=== PATIENT | female | born 1955 | race Hispanic/Latino ===

== ENCOUNTER 2018-10-16 21:51 | Emergency (ER) | payer MEDICARE ==
[~2018-10-16 21:51] MED LIST: BUPR-47 PO; DEXL60CA3 PO; GLIM4TAB3 PO; LEVO50 PO; LINA145C PO; LISI2.5T2 PO; METF-446 PO; QUET100T70 PO; ROSU40TA20 PO; SITA50TA PO; ZOLP10TA6 PO
[2018-10-16] MEDS ORDERED: ACETAMINOPHEN EXTRA STRENGTH 500 MG TABLET ONE (22:38)
[2018-10-16 22:57] LABS: RAPID GROUP A STREP NEGATIVE (NEGATIVE)
== END 2018-10-16 23:38 | disposition home or self-care (01) ==
LOC: EDH 21:51
DX: J20.9 Acute bronchitis, unspecified (principal); I10 Essential (primary) hypertension; E78.5 Hyperlipidemia, unspecified; E11.9 Type 2 diabetes mellitus without complications; Z90.710 Acquired absence of both cervix and uterus; Z90.49 Acquired absence of other specified parts of digestive tract; Z98.890 Other specified postprocedural states
CPT/HCPCS: 71046; 87804; 87880

== ENCOUNTER 2018-12-17 16:57 | Emergency (ER) | payer MEDICARE | END 2018-12-17 18:43 | disposition home or self-care (01) | LOC: EDH 16:57 | DX: S99.811A Other specified injuries of right ankle, initial encounter (principal); E11.9 Type 2 diabetes mellitus without complications; E78.5 Hyperlipidemia, unspecified; I10 Essential (primary) hypertension; W18.39XA Other fall on same level, initial encounter; Y93.89 Activity, other specified; Y92.89 Other specified places as the place of occurrence of the external cause; Y99.8 Other external cause status | CPT/HCPCS: 29515; 73610 ==

== ENCOUNTER 2018-12-24 20:27 | Emergency (ER) | payer MEDICARE ==
[2018-12-24] MEDS ORDERED: ACETAMINOPHEN EXTRA STRENGTH 500 MG TABLET ONE (20:54)
== END 2018-12-24 21:01 | disposition home or self-care (01) ==
LOC: EDH 20:27
DX: S93.401A Sprain of unspecified ligament of right ankle, initial encounter (principal); E11.9 Type 2 diabetes mellitus without complications; E78.5 Hyperlipidemia, unspecified; I10 Essential (primary) hypertension; Z90.710 Acquired absence of both cervix and uterus; Z98.890 Other specified postprocedural states; X58.XXXA Exposure to other specified factors, initial encounter; Y93.89 Activity, other specified; Y92.89 Other specified places as the place of occurrence of the external cause; Y99.8 Other external cause status
CPT/HCPCS: 99282

== ENCOUNTER 2019-01-30 17:41 | Emergency (ER) | payer MEDICARE ==
[2019-01-30 18:15] LABS: BASOPHILS % (AUTO) 0.7 % (0.0-5.0); EOSINOPHILS % (AUTO) 0.3 % (0.0-8.0); HEMATOCRIT 35.9 % (36-48); LYMPHOCYTES % (AUTO) 38.7 % (21.0-51.0); MEAN CORPUSCULAR HEMOGLOBIN 30.9 pg (27.0-33.0); MEAN CORPUSCULAR HGB CONC 35.2 g/dL (32.0-36.0); MEAN CORPUSCULAR VOLUME 87.6 fL (79-99); MONOCYTES % (AUTO) 5.1 % (3.0-13.0); NEUTROPHILS % (AUTO) 55.2 % (40.0-77.0); NUCLEATED RED BLOOD CELLS 0.2 % (0.0-0.19); PLATELET COUNT (AUTO) 278 K/uL (130-400); RED CELL DISTRIBUTION WIDTH 12.9 % (11.0-15.5)
[2019-01-30 18:16] LABS: APPEARANCE,URINE CLEAR (CLEAR); BILIRUBIN,URINE NEGATIVE (NEGATIVE); COLOR,URINE YELLOW (YELLOW); GLUCOSE, URINE (UA) NEGATIVE (NEGATIVE); KETONES,URINE NEGATIVE (NEGATIVE); LEUKOCYTE ESTERASE ,URINE NEGATIVE (NEGATIVE); NITRATE,URINE NEGATIVE (NEGATIVE); OCCULT BLOOD,URINE NEGATIVE (NEGATIVE); PROTEIN,URINE NEGATIVE (NEGATIVE); UROBILINOGEN,URINE 0.2 mg/dL (0.2-1.0)
[2019-01-30 18:26] LABS: CREATININE 0.8 mg/dL (0.5-1.5); POTASSIUM 4.3 mmol/L (3.5-5.1)
[2019-01-30 18:32] LABS: ALBUMIN 3.6 g/dL (3.5-5.0); BILIRUBIN,TOTAL 1.3 mg/dL (0.2-1.0); TOTAL PROTEIN, SERUM 7.3 g/dL (6.0-8.3)
[2019-01-30 18:37] LABS: CREATINE KINASE, TOTAL 56 U/L (21-232); MYOGLOBIN 27 ng/mL (10-92); TROPONIN I < 0.04 ng/mL (0.00-0.06)
[2019-01-30] MEDS ORDERED: MAGNESIUM CITRATE 296 ML SOLUTION ONE (20:17)
== END 2019-01-30 20:35 | disposition home or self-care (01) ==
LOC: EDH 17:41
DX: K59.00 Constipation, unspecified (principal); E11.9 Type 2 diabetes mellitus without complications; I10 Essential (primary) hypertension; E78.5 Hyperlipidemia, unspecified; Z90.49 Acquired absence of other specified parts of digestive tract; Z90.710 Acquired absence of both cervix and uterus
CPT/HCPCS: 36415; 74018; 80053; 81003; 82550; 83874; 84484; 85025; 93005

== ENCOUNTER 2019-01-31 17:39 | Inpatient (IN) | payer MEDICARE ==
[~2019-01-31] VITALS: Ht 152.4 cm; Wt 63.7 kg
[2019-01-31] MEDS ORDERED: ONDANSETRON HCL 4 MG/2 ML VIAL ONE (18:14)
[2019-01-31] MEDS ORDERED: MORPHINE SULFATE 4 MG/1ML SYG ONE (18:14)
[2019-01-31 18:15] LABS: BASOPHILS % (AUTO) 0.5 % (0.0-5.0); EOSINOPHILS % (AUTO) 0.4 % (0.0-8.0); HEMATOCRIT 33.5 % (36-48); LYMPHOCYTES % (AUTO) 30.8 % (21.0-51.0); MEAN CORPUSCULAR HEMOGLOBIN 30.3 pg (27.0-33.0); MEAN CORPUSCULAR HGB CONC 34.9 g/dL (32.0-36.0); MEAN CORPUSCULAR VOLUME 86.8 fL (79-99); MONOCYTES % (AUTO) 5.1 % (3.0-13.0); NEUTROPHILS % (AUTO) 63.2 % (40.0-77.0); PLATELET COUNT (AUTO) 262 K/uL (130-400); RED BLOOD CELL COUNT(AUTO) 3.86 MIL/uL (4.00-5.50); RED CELL DISTRIBUTION WIDTH 13.1 % (11.0-15.5); WHITE BLOOD COUNT (AUTO) 6.4 K/uL (4.8-10.8)
[2019-01-31] MEDS ORDERED: SODIUM CHLORIDE 0.9% 1000ML 1,000 ML IV ONE ×2 (18:15→22:36)
[2019-01-31 18:25] LABS: BILIRUBIN,URINE Negative (NEGATIVE); COLOR,URINE Yellow (YELLOW); GLUCOSE, URINE (UA) Negative (NEGATIVE); KETONES,URINE Negative (NEGATIVE); LEUKOCYTE ESTERASE ,URINE Trace (NEGATIVE); NITRATE,URINE Negative (NEGATIVE); OCCULT BLOOD,URINE Negative (NEGATIVE); PH,URINE 8.5 (5.0-8.0); PROTEIN,URINE Negative (NEGATIVE)
[2019-01-31 18:36] LABS: CREATININE 0.7 mg/dL (0.5-1.5); POTASSIUM 4.1 mmol/L (3.5-5.1)
[2019-01-31 18:37] LABS: APPEARANCE,URINE SLIGHTLY CLOUDY (CLEAR)
[2019-01-31 18:40] LABS: BACTERIA,URINE Many /HPF (None Seen); MUCUS,URINE Few LPF (None Seen); RBC,URINE None Seen /HPF (0-1); WBC,URINE 0-1 /HPF (0-1)
[2019-01-31 18:42] LABS: ALBUMIN 3.3 g/dL (3.5-5.0); BILIRUBIN,TOTAL 0.6 mg/dL (0.2-1.0)
[2019-01-31] MEDS: SODIUM CHLORIDE 0.9% 1000ML 1,000 ML IV SCH (21:30)
[2019-01-31] MEDS ORDERED: ONDANSETRON HCL 4 MG/2 ML VIAL IVP PRN (22:30)
[2019-01-31] MEDS ORDERED: MORPHINE SULFATE 2 MG/ML 1ML SYG ONE (22:36)
[2019-01-31 23:30] VITALS: BP 141/69
[2019-02-01] MEDS ORDERED: ASPI-1012 PO (00:02)
[2019-02-01] MEDS ORDERED: ESOM20CA39 PO (00:02)
--- NOTE | 2019-02-01 00:02 | NUR ---
ADMIT PT ADMITTED TO ROOM 322, AAOX3. DENIES ANY ABDOMINAL PAINS NOR DISCOMFORT AT THIS TIME. NO NOTED DISTRESS. ADMISSION CARE DONE. ADMISSION DATA BASE COMPLETED. IVF OF NS FROM ER CONTINUED, PLACED ON IV PUMP AND REGULATED AT 100CC/HR. HOME MEDS UPDATED. ORIENTED TO ROOM AND UNIT. IN FOR MORE CARE AND MANAGEMENT. Addendum: 02/01/19 at 0049 by JESSI TOMLIN RN RN Amended: Links added.
[2019-02-01] MEDS ORDERED: GLUCAGON 1MG KIT 1 MG ML IM PRN (00:30)
[2019-02-01] MEDS ORDERED: DEXTROSE 50%-WATER 50 ML DISP.SYRIN IV PRN (00:30)
[2019-02-01] MEDS: MORPHINE SULFATE 2 MG/ML 1ML SYG IVP PRN ×3 (01:56→17:47)
[2019-02-01 04:05] VITALS: BP 101/54
[2019-02-01] MEDS: INSULIN HUMULIN R 100 UNIT/ML 3ML SQ SCH ×4 (06:00→22:07)
[2019-02-01 06:07] LABS: HEMATOCRIT 29.6 % (36-48); MEAN CORPUSCULAR HGB CONC 36.2 g/dL (32.0-36.0); MEAN CORPUSCULAR VOLUME 88.2 fL (79-99); PLATELET COUNT (AUTO) 200 K/uL (130-400); RED BLOOD CELL COUNT(AUTO) 3.36 MIL/uL (4.00-5.50); WHITE BLOOD COUNT (AUTO) 4.2 K/uL (4.8-10.8)
[2019-02-01 06:28] LABS: ALBUMIN 2.6 g/dL (3.5-5.0); BILIRUBIN,TOTAL 0.5 mg/dL (0.2-1.0); CREATININE 0.6 mg/dL (0.5-1.5); POTASSIUM 4.3 mmol/L (3.5-5.1); TOTAL PROTEIN, SERUM 5.6 g/dL (6.0-8.3)
[2019-02-01] MEDS: SODIUM CHLORIDE 0.9% 1000ML 1,000 ML IV SCH (07:30)
[2019-02-01] MEDS ORDERED: INSULIN R PO SS1 SQ SCH (07:30)
[2019-02-01 08:00] VITALS: BP 116/53
[2019-02-01] MEDS: ENOXAPARIN SODIUM 30 MG/0.3 ML SQ SCH (10:23)
[2019-02-01] MEDS: FAMOTIDINE/PF 20 MG/2 ML VIAL IV SCH ×2 (10:24→21:59)
[2019-02-01 11:00] VITALS: BP 123/63
[2019-02-01 16:00] VITALS: BP 141/69
--- NOTE | 2019-02-01 17:45 | NUR ---
DCP CM met with pt discussed dc plans. Pt is independent prior to admission, daughter lives w/pt at home. Pt has a provider 3hrs/day. Goes to [facility] daily. Denies any other equipments/services. Pt feels safe to go back home, daughter able to assist with transportation and needs as necessary. DC plan to home once stable. CM to cont to follow up. Addendum: 02/01/19 at 1746 by MU LOPEZ LVN CM Amended: Links added.
[2019-02-01] MEDS ORDERED: CEFTRIAXONE SODIUM 1 GM IVP SCH (19:00)
[2019-02-01 19:09] VITALS: BP 140/70
[2019-02-01] MEDS: CEFTRIAXONE SODIUM 1 GM IVP SCH (21:59)
[2019-02-01 23:26] VITALS: BP 110/58
[2019-02-02] VITALS (7 sets, daily range): BP systolic 105–135; BP diastolic 53–71
[2019-02-02 06:03] LABS: BASOPHILS % (AUTO) 0.9 % (0.0-5.0); EOSINOPHILS % (AUTO) 0.5 % (0.0-8.0); HEMATOCRIT 30.7 % (36-48); LYMPHOCYTES % (AUTO) 37.1 % (21.0-51.0); MEAN CORPUSCULAR HEMOGLOBIN 30.4 pg (27.0-33.0); MEAN CORPUSCULAR HGB CONC 35.1 g/dL (32.0-36.0); MEAN CORPUSCULAR VOLUME 86.7 fL (79-99); MONOCYTES % (AUTO) 6.1 % (3.0-13.0); NEUTROPHILS % (AUTO) 55.4 % (40.0-77.0); PLATELET COUNT (AUTO) 213 K/uL (130-400); RED BLOOD CELL COUNT(AUTO) 3.54 MIL/uL (4.00-5.50); RED CELL DISTRIBUTION WIDTH 12.9 % (11.0-15.5); WHITE BLOOD COUNT (AUTO) 3.7 K/uL (4.8-10.8)
[2019-02-02 06:27] LABS: CREATININE 0.6 mg/dL (0.5-1.5); POTASSIUM 4.1 mmol/L (3.5-5.1)
[2019-02-02] MEDS: INSULIN HUMULIN R 100 UNIT/ML 3ML SQ SCH ×4 (06:58→21:00)
--- NOTE | 2019-02-02 07:59 | NUR ---
PATIENT UPDATE SLEPT WELL OVERNIGHT AFTER SHE WAS GIVEN THE [facility] HOME MED. STARTED ON A CLEAR LIQUID DIET, WELL TOLERATED. NO COMPLAINTS OF NAUSEA AND VOMITING, NO ABDOMINAL PAIN, VITAL SIGNS STABLE. CONTINUES WITH NS AT 100 CC/HR. NO COMPLAINTS VOICED OUT.
[2019-02-02] MEDS: LISINOPRIL 2.5 MG TABLET PO SCH (08:46)
[2019-02-02] MEDS: FAMOTIDINE/PF 20 MG/2 ML VIAL IV SCH ×2 (08:46→21:48)
[2019-02-02] MEDS: ASPIRIN 325 MG TABLET PO SCH (08:46)
[2019-02-02] MEDS: ENOXAPARIN SODIUM 30 MG/0.3 ML SQ SCH (08:47)
[2019-02-02] MEDS: MORPHINE SULFATE 2 MG/ML 1ML SYG IVP PRN (14:54)
--- NOTE | 2019-02-02 19:43 | NUR ---
Report given Mu Mukherjee RN as Pt transferring to room 114. Patient in stable condition. Pt in no distress.
[2019-02-02] MEDS ORDERED: ZOLPIDEM TARTRATE 5 MG TAB PO SCH (21:00)
[2019-02-02] MEDS: CEFTRIAXONE SODIUM 1 GM IVP SCH (21:48)
[2019-02-02] MEDS: DOCUSATE SODIUM 100 MG CAP PO SCH (21:48)
[2019-02-02] MEDS: METRONIDAZOLE 500MG/100ML BAG 100 ML IV SCH (22:30)
[2019-02-03 04:04] VITALS: BP 122/65
[2019-02-03] MEDS: METRONIDAZOLE 500MG/100ML BAG 100 ML IV SCH (05:57)
[2019-02-03 07:22] LABS: HEMATOCRIT 31.2 % (36-48); MEAN CORPUSCULAR HEMOGLOBIN 30.3 pg (27.0-33.0); MEAN CORPUSCULAR HGB CONC 35.2 g/dL (32.0-36.0); MEAN CORPUSCULAR VOLUME 86.2 fL (79-99); PLATELET COUNT (AUTO) 214 K/uL (130-400); RED BLOOD CELL COUNT(AUTO) 3.62 MIL/uL (4.00-5.50); RED CELL DISTRIBUTION WIDTH 12.8 % (11.0-15.5)
[2019-02-03] MEDS: INSULIN HUMULIN R 100 UNIT/ML 3ML SQ SCH ×2 (07:30→11:30)
[2019-02-03 07:33] LABS: CREATININE 0.6 mg/dL (0.5-1.5); POTASSIUM 3.8 mmol/L (3.5-5.1)
[2019-02-03 07:34] VITALS: BP 121/64
[2019-02-03] MEDS: LISINOPRIL 2.5 MG TABLET PO SCH (08:55)
[2019-02-03] MEDS: FAMOTIDINE/PF 20 MG/2 ML VIAL IV SCH (08:55)
[2019-02-03] MEDS: DOCUSATE SODIUM 100 MG CAP PO SCH (08:55)
[2019-02-03] MEDS: ASPIRIN 325 MG TABLET PO SCH (08:56)
[2019-02-03] MEDS: ENOXAPARIN SODIUM 30 MG/0.3 ML SQ SCH (08:57)
[2019-02-03] MEDS: MORPHINE SULFATE 2 MG/ML 1ML SYG IVP PRN (09:17)
[2019-02-03] MEDS ORDERED: METRONIDAZOLE 500 MG TABLET PO SCH (10:45)
[2019-02-03] MEDS ORDERED: METR500T PO (10:58)
[2019-02-03 11:15] VITALS: BP 123/66
[2019-02-03] MEDS ORDERED: LUBIPROSTONE 24 MCG CAP PO SCH (11:15)
[2019-02-03] MEDS ORDERED: DOCU-116 PO (11:16)
[2019-02-03] MEDS ORDERED: TYL3 PO (11:16)
--- NOTE | 2019-02-03 13:40 | NUR ---
DISCHARGE INSTRUCTIONS DISCHARGE INSTRUCTIONS READ AND EXPLAINED TO PATIENT. PRESCRIPTION FOR FLAGYL 500MG AND TYLENOL #3 HANDED TO PATIENT. QUESTIONS INVITED AND ANSWERED. NO COMPLAINTS OR CONCERNS ADDRESSED FROM PATIENT.
--- NOTE | 2019-02-03 13:50 | NUR ---
DISCHARGE PATIENT LEFT UNIT VIA WHEELCHAIR WITH BELONGINGS IN ARM. PERSONAL VEHICLE USED FOR TRANSPORTATION.
== END 2019-02-03 13:50 | disposition home or self-care (01) | DRG 391 ==
LOC: EDH 17:39 → EDHIP 21:00 → OBSVTOIN 21:00 → EDH 21:21 → 3DH 22:45 → WSH 02-02 20:20
PROVIDERS: ADMIT Internal Medicine; ATTEND Internal Medicine
DX: K57.92 Diverticulitis of intestine, part unspecified, without perforation or abscess without bleeding (principal); K85.90 Acute pancreatitis without necrosis or infection, unspecified; N39.0 Urinary tract infection, site not specified; E11.65 Type 2 diabetes mellitus with hyperglycemia; E78.5 Hyperlipidemia, unspecified; I10 Essential (primary) hypertension; K59.00 Constipation, unspecified; Z82.3 Family history of stroke; Z83.3 Family history of diabetes mellitus; Z90.49 Acquired absence of other specified parts of digestive tract; Z82.49 Family history of ischemic heart disease and other diseases of the circulatory system; Z88.8 Allergy status to other drugs, medicaments and biological substances; Z91.041 Radiographic dye allergy status
CPT/HCPCS: 36415; 74018; 74176; 80048; 80053; 81001; 81003; 82150; 82550; 82948; 83690; 83874; 84478; 84484; 85025; 85027; 93005; G0378; J0696; J1650; J2270; J2405; J3490; J7030

== ENCOUNTER 2019-02-15 14:25 | Emergency (ER) | payer MEDICARE ==
[~2019-02-15 14:25] MED LIST changes: +ASPI-1012 PO; -BUPR-47 PO; -DEXL60CA3 PO; +DOCU-116 PO; +ESOM20CA39 PO; -LEVO50 PO; +METR500T PO; -QUET100T70 PO; -ROSU40TA20 PO; -SITA50TA PO; +TYL3 PO
[2019-02-15 15:05] LABS: BASOPHILS % (AUTO) 0.3 % (0.0-5.0); EOSINOPHILS % (AUTO) 0.3 % (0.0-8.0); HEMATOCRIT 37.6 % (36-48); LYMPHOCYTES % (AUTO) 22.1 % (21.0-51.0); MEAN CORPUSCULAR HEMOGLOBIN 31.1 pg (27.0-33.0); MEAN CORPUSCULAR HGB CONC 35.6 g/dL (32.0-36.0); MEAN CORPUSCULAR VOLUME 87.4 fL (79-99); MONOCYTES % (AUTO) 5.5 % (3.0-13.0); NEUTROPHILS % (AUTO) 71.8 % (40.0-77.0); NUCLEATED RED BLOOD CELLS 0.1 % (0.0-0.19); PLATELET COUNT (AUTO) 270 K/uL (130-400); RED BLOOD CELL COUNT(AUTO) 4.31 MIL/uL (4.00-5.50); RED CELL DISTRIBUTION WIDTH 13.5 % (11.0-15.5); WHITE BLOOD COUNT (AUTO) 6.8 K/uL (4.8-10.8)
[2019-02-15 15:07] LABS: APPEARANCE,URINE Clear (CLEAR); BILIRUBIN,URINE Negative (NEGATIVE); COLOR,URINE Yellow (YELLOW); GLUCOSE, URINE (UA) Negative (NEGATIVE); KETONES,URINE Negative (NEGATIVE); LEUKOCYTE ESTERASE ,URINE Negative (NEGATIVE); NITRATE,URINE Negative (NEGATIVE); OCCULT BLOOD,URINE Negative (NEGATIVE); PROTEIN,URINE Negative (NEGATIVE); UROBILINOGEN,URINE 0.2 mg/dL (0.2-1.0)
[2019-02-15 15:15] LABS: AMYLASE 70 U/L (25-115); LIPASE 268 U/L (114-286)
[2019-02-15 15:16] LABS: CREATININE 0.6 mg/dL (0.5-1.5); POTASSIUM 4.1 mmol/L (3.5-5.1)
[2019-02-15 15:20] LABS: ALBUMIN 3.7 g/dL (3.5-5.0); BILIRUBIN,TOTAL 0.5 mg/dL (0.2-1.0); TOTAL PROTEIN, SERUM 7.5 g/dL (6.0-8.3)
[2019-02-15 15:29] LABS: CREATINE KINASE, TOTAL 36 U/L (21-232); MYOGLOBIN 19 ng/mL (10-92); TROPONIN I < 0.04 ng/mL (0.00-0.06)
[2019-02-15] MEDS ORDERED: HYOSCYAMINE SULFATE 0.125 MG TAB.SUBL SL ONE ×2 (16:22→16:34)
[2019-02-15] MEDS ORDERED: FAMOTIDINE/PF 20 MG/2 ML VIAL IV ONE ×2 (16:22→16:34)
[2019-02-15] MEDS ORDERED: SODIUM CHLORIDE 0.9% 1000ML 1,000 ML IV ONE (16:51)
[2019-02-15] MEDS ORDERED: BISACODYL 10 MG SUPP.RECT RC ONE (19:34)
== END 2019-02-15 20:57 | disposition home or self-care (01) ==
LOC: EDH 14:25
DX: R10.84 Generalized abdominal pain (principal); R42 Dizziness and giddiness; R11.0 Nausea; R53.1 Weakness; E11.9 Type 2 diabetes mellitus without complications; E78.5 Hyperlipidemia, unspecified; I10 Essential (primary) hypertension; Z90.710 Acquired absence of both cervix and uterus; Z90.49 Acquired absence of other specified parts of digestive tract
CPT/HCPCS: 36415; 71045; 74176; 80053; 81003; 82150; 82550; 83690; 83874; 84484; 85025; 93005; 96361; 96374; 99285; J3490 ×2; J7030

== ENCOUNTER → 2019-07-31 | Outpatient (CLI) | payer MEDICARE ==
[~2019-07-31] MED LIST changes: -GLIM4TAB3 PO; +GLIM4TAB5 PO
== END | disposition home or self-care (01) ==
LOC: RAH 08:53
PROVIDERS: ATTEND Internal Medicine Gastroenterology
DX: K22.4 Dyskinesia of esophagus (principal)
CPT/HCPCS: 74220